=== PATIENT | female | born 1980 | race Caucasian/White ===

== ENCOUNTER 2017-03-09 10:30 | Observation (INO) | payer BC ==
[2017-03-09] VITALS (14 sets, daily range): BP systolic 11–115; BP diastolic 44–558; PULSE 76–89; TEMP 97.6–98.8
[~2017-03-09] VITALS: Ht 139.7 cm; Wt 40.5 kg
[2017-03-09] MEDS ORDERED: BLISOVI 24 FE1 EACH PO (10:38)
[2017-03-09] MEDS ORDERED: IRON 27 MG PO (11:16)
[2017-03-09] MEDS ORDERED: VTAMINC250TA PO (11:17)
[2017-03-09] MEDS ORDERED: BLISOVI FE 1-21 EACH PO (11:17)
[2017-03-09] MEDS ORDERED: MASON NATURAL2000 IU PO (11:17)
[2017-03-09 11:25] LABS: BASO % 0.6 % (0.0-2.0); EOS # 0.1 (0.0-0.7); EOS % 1.3 % (0-4.0); GRAN % 74.6 % (42.2-75.2); LYMPH # 0.8 (1.2-3.4); LYMPH % 15.1 % (20.0-51.0); MEAN CELL VOLUME 87 fl (80.0-100.0); MEAN CORPUSCULAR HGB CONC 29 g/dl (33.0-37.0); MONO # 0.4 (0.1-0.6); PLATELET COUNT 357 K/mm3 (130-400); REDCELL DISTRIBUTION WIDTH-CV 16.1 % (11.5-14.5)
[2017-03-09 11:32] LABS: BILIRUBIN,TOTAL 0.2 mg/dL (0.0-1.0); CALCIUM 9.1 mg/dL (8.4-10.2); CREATININE, serum 0.62 mg/dL (0.52-1.25); TOTAL PROTEIN 6.4 gm/dL (6.4-8.2)
[2017-03-09 11:33] LABS: HEMATOCRIT 24.4 % (37.0-47.0); MEAN CORPUSCULAR HEMOGLOBIN 25 pg (27.0-31.0)
[2017-03-09 18:11] LABS: HEMATOCRIT 30.1 % (37.0-47.0); HEMOGLOBIN 9.2 g/dl (12.5-16.0)
== END 2017-03-09 18:55 | disposition home or self-care (01) ==
LOC: COL.ER 10:30 → OB 14:01
PROVIDERS: Obstetrics & Gynecology; Physician Assistant
DX: D62 Acute posthemorrhagic anemia (principal); N92.0 Excessive and frequent menstruation with regular cycle; D25.9 Leiomyoma of uterus, unspecified
CPT/HCPCS: G0378; J2405; J7030; P9016

== ENCOUNTER → 2017-03-31 | Outpatient (REF) ==
[~2017-03-31] MED LIST: BLISOVI 24 FE1 EACH PO; BLISOVI FE 1-21 EACH PO; IRON 27 MG PO; MASON NATURAL2000 IU PO; VTAMINC250TA PO
[2017-03-31 04:33] LABS: BASO % 0.3 % (0.0-2.0); EOS % 0.1 % (0-4.0); GRAN % 72.8 % (42.2-75.2); LYMPH # 1.2 (1.2-3.4); LYMPH % 16.8 % (20.0-51.0); MEAN CELL VOLUME 88 fl (80.0-100.0); MEAN CORPUSCULAR HGB CONC 30 g/dl (33.0-37.0); MONO # 0.7 (0.1-0.6); MONO % 9.6 % (1.7-9.3); PLATELET COUNT 384 K/mm3 (130-400); RED BLOOD COUNT 2.67 M/mm3 (4.10-5.30); REDCELL DISTRIBUTION WIDTH-CV 16.1 % (11.5-14.5)
[2017-03-31 04:37] LABS: HEMATOCRIT 23.5 % (37.0-47.0); MEAN CORPUSCULAR HEMOGLOBIN 26 pg (27.0-31.0)
== END ==
LOC: ZMSC 04:27
PROVIDERS: Obstetrics & Gynecology
DX: Z01.89 Encounter for other specified special examinations (principal)

== ENCOUNTER → 2023-07-12 | Outpatient (CLI) | payer BC | LOC: MC.RAD 08:02 | DX: Z12.31 Encounter for screening mammogram for malignant neoplasm of breast (principal) ==